=== PATIENT | male | born 1940 | race Caucasian/White ===

== ENCOUNTER → 2016-10-01 | Outpatient (CLI) | payer MEDICARE ==
[2016-10-01 09:48] LABS: Aty Lym Flag Slight; CH 32.8; CHCM 35.1; HCT 49.3 % (39.0-53.0); HGB 17.2 gm/dL (13.0-17.5); MCH 32.8 pg (25.0-35.0); MCHC 34.9 g/dL (31.0-37.0); MCV 93.9 fL (80.0-100.0); Mean Platelet Volume 7.2; RBC 5.25 m/uL (4.30-5.90); RDW 12.7 % (11.5-15.5); WBC 5.1 k/uL (3.8-10.6); WBC (Perox) 5.14
[2016-10-01 10:15] LABS: ALT 60 U/L (21-72); AST 58 U/L (17-59); Alkaline Phosphatase 74 U/L (38-126); Anion Gap 10 mmol/L; Blood Urea Nitrogen 9 mg/dL (9-20); Calcium 9.3 mg/dL (8.4-10.2); Carbon Dioxide 25 mmol/L (22-30); Chloride 103 mmol/L (98-107); Cholesterol 147 mg/dL (<200); Glucose 94 mg/dL (74-99); HDL Cholesterol 61 mg/dL (40-60); Non-African American GFR(MDRD) >60 (>60 ml/min/1.73 sqM); Potassium 4.7 mmol/L (3.5-5.1); Sodium 138 mmol/L (137-145); Total Bilirubin 1.2 mg/dL (0.2-1.3); Triglycerides 122 mg/dL (<150)
[2016-10-01 11:08] LABS: Add Differential Manual Differential
[2016-10-01 11:13] LABS: Manual Review Performed; Nucleated Red Blood Cells 0 /100 WBC (0-0); Total Cells Counted 100
== END ==
LOC: LABWHC1 09:25
PROVIDERS: ATTEND Internal Medicine Interventional Cardiology
DX: E78.2 Mixed hyperlipidemia (principal); I10 Essential (primary) hypertension
CPT/HCPCS: 36415; 80053; 80061; 85025

== ENCOUNTER → 2016-12-25 | Outpatient (CLI) | payer MEDICARE ==
[2016-12-25 09:22] LABS: ALT 57 U/L (21-72); AST 53 U/L (17-59); Cholesterol 156 mg/dL (<200); HDL Cholesterol 62 mg/dL (40-60); Triglycerides 129 mg/dL (<150)
== END | disposition home or self-care (01) ==
LOC: LABWHC1 08:50
PROVIDERS: ATTEND Internal Medicine Interventional Cardiology
DX: E78.2 Mixed hyperlipidemia (principal)
CPT/HCPCS: 36415; 80061; 84450; 84460

== ENCOUNTER → 2017-08-29 | Outpatient (CLI) | payer MEDICARE ==
[2017-08-29 10:33] LABS: ALT 51 U/L (21-72); AST 43 U/L (17-59); Albumin 3.7 g/dL (3.5-5.0); Alkaline Phosphatase 81 U/L (38-126); Anion Gap 10 mmol/L; Blood Urea Nitrogen 11 mg/dL (9-20); Calcium 9.1 mg/dL (8.4-10.2); Carbon Dioxide 28 mmol/L (22-30); Chloride 101 mmol/L (98-107); Cholesterol 125 mg/dL (<200); Glucose 92 mg/dL (74-99); HDL Cholesterol 44 mg/dL (40-60); LDL Cholesterol,Calculated 62 mg/dL (0-99); Potassium 4.8 mmol/L (3.5-5.1); Sodium 139 mmol/L (137-145); Total Bilirubin 0.8 mg/dL (0.2-1.3); Total Protein 6.5 g/dL (6.3-8.2); Triglycerides 97 mg/dL (<150)
== END | disposition home or self-care (01) ==
LOC: LABWHC1 09:29
PROVIDERS: ATTEND Internal Medicine Interventional Cardiology
DX: E78.2 Mixed hyperlipidemia (principal)
CPT/HCPCS: 36415; 80053; 80061

== ENCOUNTER → 2018-06-13 | Outpatient (CLI) | payer MEDICARE ==
[2018-06-13 12:13] LABS: Basophils % (A) 0 %; Eosinophils # (A) 0.1 k/uL (0-0.7); Eosinophils % (A) 2 %; HCT 50.2 % (39.0-53.0); HGB 17.1 gm/dL (13.0-17.5); Lymphocytes # (A) 1.4 k/uL (1.0-4.8); Lymphocytes % (A) 26 %; MCH 32.2 pg (25.0-35.0); MCV 94.8 fL (80.0-100.0); Mean Platelet Volume 6.8; Monocytes # (A) 0.5 k/uL (0-1.0); Monocytes % (A) 9 %; Neutrophils % (A) 58 %; Platelet Count 150 k/uL (150-450); RDW 12.8 % (11.5-15.5); WBC 5.1 k/uL (3.8-10.6)
[2018-06-13 16:32] LABS: Albumin 4.1 g/dL (3.80-4.90); Albumin/Globulin Ratio 2.41 (1.20-2.10); Anion Gap 6.5 mmol/L (4.00-12.00); Calcium 9.5 mg/dL (8.7-10.3); Carbon Dioxide 27.5 mmol/L (21.6-31.8); Globulin 1.7 g/dL (2.1-3.7); Potassium 5.2 mmol/L (3.5-5.5); Total Protein 5.8 g/dL (6.2-8.2)
== END | disposition home or self-care (01) ==
LOC: LABWHC1 10:44
PROVIDERS: ATTEND Family Medicine
DX: E78.2 Mixed hyperlipidemia (principal); I10 Essential (primary) hypertension
CPT/HCPCS: 36415; 80053; 80061; 85025

== ENCOUNTER → 2019-01-19 | Outpatient (CLI) | payer MEDICARE ==
[2019-01-19 19:38] LABS: LDL Cholesterol,Calculated 69.8 mg/dL (0.0-131.0); VLDL Calculation 27.2 mg/dL (5.00-40.00)
== END | disposition home or self-care (01) ==
LOC: LABWHC1 10:23
PROVIDERS: ATTEND Internal Medicine Interventional Cardiology
DX: E78.2 Mixed hyperlipidemia (principal)
CPT/HCPCS: 36415; 80061; 82550; 84450; 84460

== ENCOUNTER → 2019-03-26 | Outpatient (CLI) | payer MEDICARE ==
--- NOTE | 2019-03-26 09:51 | US ---
EXAMINATION TYPE: US abdomen complete DATE OF EXAM: 03/26/2019 COMPARISON: NONE CLINICAL HISTORY: R10.9 Abd pain. pain EXAM MEASUREMENTS: Liver Length: 12.8 cm Gallbladder Wall: 0.2 cm CBD: 0.3 cm Spleen: 9.8 cm Right Kidney: 10.4 x 4.5 x 5.2 cm Left Kidney: 11.9 x 4.9 x 4.5 cm Pancreas: Obscured by bowel gas Liver: There is increased echogenicity of the hepatic parenchyma with diminished visualization of th e portal triads most commonly relating to hepatic steatosis and limiting evaluation for underlying he patic masses. Gallbladder: Stones seen. Evidence for sonographic Singer's sign: No CBD: wnl Spleen: wnl Right Kidney: Hypoechoic area superior pole measuring 3.7 x 3.3 x 3.5 cm. Left Kidney: wnl Upper IVC: wnl Abd Aorta: Calcifications visualized. The liver is heterogenous and hyperechoic. The intrahepatic portion of the IVC and proximal abdomina l aorta are within normal limits. Common bile duct is unremarkable. The visualized portions of the p ancreas are homogenous. The spleen is unremarkable. Kidneys are symmetric and free of hydronephrosi s. IMPRESSION: 1. Hypoechoic mass of the superior pole of the right kidney measures 3.7 cm. This does not have defin itive characteristics of a cyst on ultrasound and should be further evaluated with enhanced three-pha se CT abdomen. 2. Cholelithiasis. No sonographic evidence of acute cholecystitis. 3. Sonographic findings most commonly related to hepatic steatosis. Correlate with liver function chanel ts.
== END | disposition home or self-care (01) ==
LOC: RADUSWWP 08:53
PROVIDERS: ATTEND Family Medicine
DX: K80.20 Calculus of gallbladder without cholecystitis without obstruction (principal); K76.0 Fatty (change of) liver, not elsewhere classified; N28.89 Other specified disorders of kidney and ureter
CPT/HCPCS: 76700

== ENCOUNTER → 2019-04-10 | Outpatient (CLI) | payer MEDICARE ==
[2019-04-10 14:03] LABS: African American GFR (CKD) >90 (>60 ml/min/1.73 sqM); Blood Urea Nitrogen 9 mg/dL (9-20); Non-African American GFR(CKD) 90 (>60 ml/min/1.73 sqM)
--- NOTE | 2019-04-10 15:11 | CT ---
EXAMINATION TYPE: CT abdomen wo/w con DATE OF EXAM: 04/10/2019 COMPARISON: Abdominal ultrasound March 26, 2019. HISTORY: Disorders of kidney, recent abnormal ultrasound CT DLP: 1547.9 mGycm, Automated Exposure Control for Dose Reduction was Utilized. CONTRAST: CT scan of the abdomen is performed with oral and without and with IV Contrast, patient injected with 100 mL of Isovue 300. FINDINGS: LUNG BASES: Partial visualization of sternal wires. Partial visualization of right coronary calcifica tion or more likely coronary stent. LIVER/GB: Versus diffusely low dense relative to spleen on noncontrast images consistent with diffuse fatty infiltration which correlates with recent ultrasound. PANCREAS: No significant abnormality is seen. SPLEEN: No significant abnormality is seen. ADRENALS: No significant abnormality is seen. KIDNEYS: No renal calculi on noncontrast CT in either kidney. Central vascular calcifications are pr esent bilaterally. Correlating with ultrasound there is exophytic lesion upper pole level measuring 3 .1 x 3.3 cm axial image 25 by nearly 3.0 cm craniocaudal dimension with rim calcification and central low density consistent with calcified exophytic cyst. No suspicious nodularity or enhancement. There is second smaller simple-appearing 1.2 cm cyst in the right kidney mid to lower pole level seen best delayed axial image 41 series 10. Some focal cortical thinning lower pole of the right kidney medial ly is seen. Symmetric cortical medullary uptake and excretion without hydronephrosis is noted bilater ally. BOWEL: Oral contrast does not reach colonic level. No suspicious small or large bowel dilatation. A f ew scattered diverticula in the left colon. LYMPH NODES: No greater than 1cm abdominal lymph nodes are appreciated. OSSEOUS STRUCTURES: Mild to moderate disc space narrowing L3-L4 level through L5-S1 levels with poste rior disc herniations effacing the anterior thecal sac and multilevel facet arthropathy. Postsurgical change at these levels is noted with multilevel spinous process resection. OTHER:. Moderate to severe calcified plaque of the aorta extends into branch vessels. IMPRESSION: Correlating with ultrasound there is 3.3 cm rim calcified exophytic cyst from the posteri or lateral aspect of right kidney, Bosniak type II lesion presumed benign.
== END | disposition home or self-care (01) ==
LOC: RADCTMAIN 13:19
PROVIDERS: ATTEND Family Medicine
DX: N28.1 Cyst of kidney, acquired (principal); N28.89 Other specified disorders of kidney and ureter
CPT/HCPCS: 82565; 84520; 74170; 36415; Q9967

== ENCOUNTER → 2019-07-13 | Outpatient (CLI) | payer MEDICARE ==
[2019-07-13 17:18] LABS: African American GFR (CKD) 99.9 (60.0-200.0); Albumin 3.9 g/dL (3.80-4.90); Albumin/Globulin Ratio 1.86 (1.60-3.17); Anion Gap 7.1 mmol/L (4.00-12.00); BUN/Creat Ratio 16.25 Ratio (12.00-20.00); Calcium 8.8 mg/dL (8.7-10.3); Carbon Dioxide 26.9 mmol/L (21.6-31.8); Chol/HDL Ratio 2.84; Globulin 2.1 g/dL (1.6-3.3); LDL Cholesterol,Calculated 63.6 mg/dL (0.0-131.0); Non-African American GFR(CKD) 86.2 (60.0-200.0); Potassium 4.7 mmol/L (3.5-5.5); Total Bilirubin 0.9 mg/dL (0.2-1.2); VLDL Calculation 26.4 mg/dL (5.00-40.00)
== END | disposition home or self-care (01) ==
LOC: LABWHC1 10:49
PROVIDERS: ATTEND Nurse Practitioner Adult Health
DX: E78.2 Mixed hyperlipidemia (principal); I10 Essential (primary) hypertension
CPT/HCPCS: 36415; 80053; 80061

== ENCOUNTER → 2020-01-19 | Outpatient (CLI) | payer MEDICARE ==
[2020-01-19 11:57] LABS: African American GFR (CKD) >90 (>60 ml/min/1.73 sqM); Blood Urea Nitrogen 9 mg/dL (9-20); Non-African American GFR(CKD) >90 (>60 ml/min/1.73 sqM)
--- NOTE | 2020-01-19 12:35 | CT ---
EXAMINATION TYPE: CT abdomen w con DATE OF EXAM: 01/19/2020 COMPARISON: 04/10/2019 HISTORY: Cyst of right kidney and flank pain. CT DLP: 961.2 mGycm CONTRAST: CT scan of the abdomen is performed with Oral Contrast and with IV Contrast, patient injected with 10 0ml mL of Isovue 300. FINDINGS: LUNG BASES-: No visible nodule. No infiltrate. LIVER/GB: No calcified gallstones. No space occupying hepatic lesion. Biliary tree is of normal ca liber. PANCREAS: No inflammation. No distinct mass. SPLEEN: No splenic enlargement. No lesion seen. ADRENALS: No nodule. No thickening. KIDNEYS/BLADDER: No hydronephrosis. Calcified cystic lesion upper pole right kidney is unchanged an d measures 3.2 cm in greatest dimension versus 3.2 cm previously. Simple cysts noted midpole right ki dney also unchanged. The left kidney is unremarkable. Nonobstructing nephrolithiasis seen bilaterally . Urinary bladder grossly unremarkable. BOWEL: Normal appendix. Normal bowel caliber. No inflammation. LYMPH NODES: No greater than 1cm abdominal or pelvic lymph nodes are appreciated. AORTA: No significant abnormality. OSSEOUS STRUCTURES: No significant abnormality is seen. OTHER: No significant additional abnormality is seen. IMPRESSION: 1. Stable calcified cystic lesion right kidney.
== END ==
LOC: RADCTMAIN 11:05
PROVIDERS: ATTEND Family Medicine
DX: N28.1 Cyst of kidney, acquired (principal)
CPT/HCPCS: 82565; 84520; 74160; 36415; Q9967

== ENCOUNTER → 2020-04-25 | Outpatient (CLI) | payer MEDICARE ==
[2020-04-25 18:41] LABS: African American GFR (CKD) 99.2 (60.0-200.0); Anion Gap 7.5 mmol/L (4.00-12.00); Carbon Dioxide 28.5 mmol/L (21.6-31.8); Non-African American GFR(CKD) 85.6 (60.0-200.0); Potassium 4.2 mmol/L (3.5-5.5)
== END | disposition home or self-care (01) ==
LOC: LABWHC1 14:39
PROVIDERS: ATTEND Internal Medicine Interventional Cardiology
DX: I10 Essential (primary) hypertension (principal)
CPT/HCPCS: 36415; 80051; 82565; 84520

== ENCOUNTER → 2020-05-11 | Outpatient (CLI) | payer MEDICARE ==
[2020-05-11 17:57] LABS: African American GFR (CKD) 99.2 (60.0-200.0); BUN/Creat Ratio 12.5 Ratio (12.00-20.00); Calcium 9.3 mg/dL (8.7-10.3); Non-African American GFR(CKD) 85.6 (60.0-200.0); Potassium 5.2 mmol/L (3.5-5.5)
== END | disposition home or self-care (01) ==
LOC: LABWHC1 07:47
PROVIDERS: ATTEND Nurse Practitioner Adult Health
DX: I10 Essential (primary) hypertension (principal)
CPT/HCPCS: 36415; 80048

== ENCOUNTER → 2023-06-11 | Outpatient (CLI) | payer MEDICARE ==
[2023-06-11 15:31] LABS: ALT 19 U/L (10-49); AST 24 U/L (14-35); Albumin 4.2 g/dL (3.8-4.9); Albumin/Globulin Ratio 1.91 Ratio (1.60-3.17); Alkaline Phosphatase 69 U/L (41-126); BUN/Creat Ratio 13.62 Ratio (12.00-20.00); Blood Urea Nitrogen 10.9 mg/dL (9.0-27.0); Calcium 9.5 mg/dL (8.7-10.3); Carbon Dioxide 27.6 mmol/L (21.6-31.8); Chloride 91 mmol/L (96-109); Chol/HDL Ratio 2.71 Ratio; Globulin 2.2 g/dL (1.6-3.3); Glucose 90 mg/dL (70-110); LDL Cholesterol,Calculated 56.3 mg/dL (0.0-131.0); Potassium 4.6 mmol/L (3.5-5.5); Sodium 129 mmol/L (135-145); Total Bilirubin 1.2 mg/dL (0.3-1.2); Total Protein 6.4 g/dL (6.2-8.2)
== END | disposition home or self-care (01) ==
LOC: LABWHC1 11:30
PROVIDERS: ATTEND Internal Medicine Interventional Cardiology
DX: Z00.00 Encounter for general adult medical examination without abnormal findings (principal); I10 Essential (primary) hypertension; E78.2 Mixed hyperlipidemia
CPT/HCPCS: 36415; 80053; 80061

== ENCOUNTER 2023-09-04 20:01 | Emergency (ER) | payer MEDICARE ==
[2023-09-04 20:37] VITALS: BP 176/87; PULSE 63; RESP 18; TEMP 98.2
--- NOTE | 2023-09-04 21:08 | CT ---
EXAMINATION TYPE: CT brain cspine wo con CT DLP: 1382.6 mGycm, Automated exposure control for dose reduction was used. DATE OF EXAM: 09/04/2023 8:47 PM COMPARISON: None. CLINICAL INDICATION:Male, 83 years old with history of fall from standing. on 81mg asa; Fall on thinn ers, laceration to left superior eyelid and behind left ear. TECHNIQUE: Brain: Multiple axial CT images of the brain were obtained without IV contrast. Cspine: Axial CT images from the skull base to the inferior aspect of T2 we obtained without intraven ous contrast. Coronal and sagittal reformatted images were also reviewed. FINDINGS: Brain: Extra-axial spaces: No abnormal extra-axial fluid collections. Ventricular system: Within normal limits Cerebral parenchyma: No acute intraparenchymal hemorrhage or mass effect. The thomas-white junction is well differentiated. Cerebellum: Unremarkable. Mass effect: No evidence of midline shift. Intracranial vasculature: Atherosclerotic calcifications of the intracranial vessels. Soft tissues: Left periorbital edema/laceration. Calvarium/osseous structures: No depressed skull fracture. Paranasal sinuses and mastoid air cells: Clear. Visualized orbits: Bilateral aphakia. Cervical spine: Fracture: None. Osseous structures: Multilevel degenerative disc disease changes with endplate spurring and disc oste ophyte complex's. Fixation hardware changes in the spine at multiple levels hardware is intact. Vertebral alignment: Within normal limits. Spinal canal/Neural Foramina: No evidence of significant spinal canal narrowing. No evidence for sign ificant neural foraminal stenosis. Neck soft tissues: Prevertebral soft tissues are within normal limits. Other: The airway is patent. The lung apices are clear. Atherosclerosis of the carotid bifurcations. IMPRESSION: 1. No acute intracranial process. 2. Left scalp laceration without evidence of fracture. 3. No evidence of cervical spine fracture. 4. Postsurgical changes spine with hardware intact, multilevel degenerative disc disease. 5. Severe atherosclerosis of the carotid bifurcations. There carotid duplex for evaluation for steno sis.
[2023-09-04] MEDS: LIDOCAINE 2%-EPI 1:100,000 20 ML VIAL SQ STA (21:25)
[2023-09-04] MEDS: BACITRACIN OINT 1 EACH PACKET TOPICAL ONE (23:04)
--- NOTE | 2023-09-04 23:22 | ED ---
Fall HPI - General Chief Complaint: Fall Stated Complaint: fell, head injury Time Seen by Provider: 09/04/23 20:21 Source: patient, family Mode of arrival: wheelchair - History of Present Illness Initial Comments: 83-year-old male presented to the ED with a chief complaint of fall per patient's daughter has a known issue with instability on his feet. Patient states today after going out to get a beer when he got out of his truck he "tripped up on his own feet" causing him to land onto his left side injuring his left elbow and also hitting the left side of his head on the cement. There is no LOC at this time. Patient is on aspirin. No other injuries at this time. No chest pain or shortness of breath. Denies weakness or numbness. No other complaints. - Related Data Previous Rx's Medication Instructions Recorded Aspirin 81 mg PO DAILY #30 chew 06/01/14 Benazepril [Lotensin] 10 mg PO DAILY #30 tab 06/01/14 Clopidogrel [Plavix] 75 mg PO DAILY #30 tab 06/01/14 Furosemide [Lasix] 40 mg PO DAILY #7 tab 06/01/14 Gabapentin [Neurontin] 300 mg PO TID PRN #90 cap 06/01/14 HYDROcodone/APAP 5-325MG [[place] 1 each PO Q4HR PRN #30 tab 06/01/14 5-325] Metoprolol Tartrate [Lopressor] 25 mg PO BID #60 tab 06/01/14 Potassium Chloride ER [K-Dur 20] 20 meq PO BID #14 tab.er.prt 06/01/14 Pravastatin Sodium [Pravachol] 40 mg PO HS #30 tab 06/01/14 Allergies Allergy/AdvReac Type Severity Reaction Status Date / Time codeine AdvReac Nausea Verified 09/04/23 20:15 Review of Systems ROS Statement: Those systems with pertinent positive or pertinent negative responses have been documented in the HPI. ROS Other: All systems not noted in ROS Statement are negative. Past Medical History Past Medical History: Hyperlipidemia, Hypertension, Myocardial Infarction ([place]), Osteoarthritis (OA) Additional Past Medical History / Comment(s): SILENT [place] 2000. HERNIATED DISC- SCHEDULED FOR EPIDERAL 06/01/14 @ O& A Last Myocardial Infarction Date:: UNKNOWN 2000 History of Any Multi-Drug Resistant Organisms: None Reported Past Surgical History: Back Surgery, Heart Catheterization With Stent, Orthopedic Surgery Additional Past Surgical History / Comment(s): HEART CATH WITH 1 STENT 2000. LAMINECTOMY 2004-CERVICAL FUSION 2001 & 2002. TR. EXT.CATARACT WITH LENS IMPLANT. REPAIR FX LT ELBOW-PINS,SCREWS & WIRES IN Past Anesthesia/Blood Transfusion Reactions: No Reported Reaction Date of Last Stent Placement:: 2000 Past Psychological History: No Psychological Hx Reported Past Alcohol Use History: Daily Past Drug Use History: None Reported General Exam Limitations: no limitations General appearance: alert, in no apparent distress Head exam: Present: other (No moseley signs or raccoon's eyes. Patient does have a small irregular laceration over his left eyebrow less than a centimeter.) Eye exam: Present: normal appearance Respiratory exam: Present: normal lung sounds bilaterally Cardiovascular Exam: Present: regular rate, normal rhythm GI/Abdominal exam: Present: soft Neurological exam: Present: alert, oriented X3, CN II-XII intact, normal gait Skin exam: Present: warm, dry Course Vital Signs 09/04/23 20:10 Temperature 98.2 F Pulse Rate 63 Respiratory 18 Rate Blood Pressure 176/87 O2 Sat by Pulse 98 Oximetry Procedures - Laceration Laceration #1 Indication: laceration Site: face Size (cm): 1 (0.5) Description: irregular Depth: simple, single layer Anesthetic Used: lidocaine 2%, with epi Anesthesia Technique: local infiltration Amount (mls): 2 Pre-repair: wound explored, irrigated extensively, deep structures intact Type of Sutures: nylon Size of Sutures: 6-0 Number of Sutures: 4 Technique: simple, interrupted Patient Tolerated Procedure: well, no complications Medical Decision Making - Medical Decision Making Was pt. sent in by a medical professional or institution (, PA, TRANSPORT DRIVER, urgent care, hospital, or [facility]...) When possible be specific @ -No Did you speak to anyone other than the patient for history (EMS, parent, family, police, friend...)? What history was obtained from this source @ -No Did you review nursing and triage notes (agree or disagree)? Why? @ -I reviewed and agree with nursing and triage notes Were old charts reviewed (outside hosp., previous admission, EMS record, old EKG, old radiological studies, urgent care reports/EKG's, ch[facility] records)? Report findings @ -No old charts were reviewed Differential Diagnosis (chest pain, altered mental status, abdominal pain women, abdominal pain men, vaginal bleeding, weakness, fever, dyspnea, syncope, headache, dizziness, GI bleed, back pain, seizure, CVA, palpatations, mental health, musculoskeletal)? @ -Acute traumatic bleed, acute fracture. This is not meant to be an all- inclusive list. EKG interpreted by me (3pts min.). @ -None X-rays interpreted by me (1pt min.). @ -None done CT interpreted by me (1pt min.). @ -CT brain interpreted by me that shows no evidence of acute bleed or other acute finding. U/S interpreted by me (1pt. min.). @ -None done What testing was considered but not performed or refused? (CT, X-rays, U/S, labs)? Why? @ -None What meds were considered but not given or refused? Why? @ -None Did you discuss the management of the patient with other professionals (professionals i.e. , PA, TRANSPORT DRIVER, lab, RT, psych nurse, forensic social worker, psychiatric aides teacher, teacher, officer captain, case reviewer)? Give summary @ -No Was smoking cessation discussed for >3mins.? @ -No Was critical care preformed (if so, how long)? @ -No Were there social determinants of health that impacted care today? How? (Homelessness, low income, unemployed, alcoholism, drug addiction, transportation, low edu. Level, literacy, decrease access to med. care, chcf, rehab)? @ -No Was there de-escalation of care discussed even if they declined (Discuss DNR or withdrawal of care, Hospice)? DNR status @ -No What co-morbidities impacted this encounter? (DM, HTN, Smoking, COPD, CAD, Cancer, CVA, ARF, Chemo, Hep., AIDS, mental health diagnosis, sleep apnea, morbid obesity)? @ -None Was patient admitted / discharged? Hospital course, mention meds given and route, prescriptions, significant lab abnormalities, going to OR and other pertinent info. @ -Discharge 83-year-old male on aspirin presenting to the ED status post mechanical fall with injury to his head causing laceration. Also has skin tear to his left elbow which has no margins for repair. Tetanus updated. Laceration repaired. For further details please see procedure note. Discharged home in stable condition. Advised wound care. Left elbow was also irrigated and covered with bacitracin ointment. Discussed return precautions with patient and daughter who verbalized agreement. Undiagnosed new problem with uncertain prognosis? @ -No Drug Therapy requiring intensive monitoring for toxicity (Heparin, Nitro, Insulin, Cardizem)? @ -No Were any procedures done? @ -No Diagnosis/symptom? @ -Status post mechanical fall, laceration to eyebrow, skin tear to left elbow. Acute, or Chronic, or Acute on Chronic? @ -Acute Uncomplicated (without systemic symptoms) or Complicated (systemic symptoms)? @ -Uncomplicated Side effects of treatment? @ -No Exacerbation, Progression, or Severe Exacerbation? @ -No Poses a threat to life or bodily function? How? (Chest pain, [place], [place], pneumonia, PE, COPD, DKA, ARF, appy, cholecystitis, CVA, Diverticulitis, Homicidal, Suicidal, threat to staff... and all critical care pts) @ -No Disposition Clinical Impression: Fall Disposition: HOME SELF-CARE Condition: Good Instructions (If sedation given, give patient instructions): Fall Prevention for Older Adults (ED), Care For Your Stitches (ED) Additional Instructions: Please return to the Emergency Department if symptoms worsen or any other concerns. Please follow-up with your primary care provider. Is patient prescribed a controlled substance at d/c from ED?: No Referrals: Michael Ray MD [Primary Care Provider] - 1-2 days Time of Disposition: 23:29
[2023-09-04] MEDS: DIPH,PERTUS(ACELL)TETVAC-LF 0.5 ML VIAL IM ONE (23:37)
== END 2023-09-04 23:45 | disposition home or self-care (01) ==
LOC: EC 20:01
DX: S01.112A Laceration without foreign body of left eyelid and periocular area, initial encounter (principal); E78.5 Hyperlipidemia, unspecified; I10 Essential (primary) hypertension; I25.2 Old myocardial infarction; Z79.899 Other long term (current) drug therapy; Z23 Encounter for immunization; Z79.02 Long term (current) use of antithrombotics/antiplatelets; Z88.5 Allergy status to narcotic agent; W01.0XXA Fall on same level from slipping, tripping and stumbling without subsequent striking against object, initial encounter
CPT/HCPCS: 12011; 70450; 72125; 90471; 90715; 99284

== ENCOUNTER 2024-09-27 20:34 | Emergency (ER) | payer MEDICARE ==
[2024-09-27 20:57] VITALS: RESP 18
--- NOTE | 2024-09-27 21:19 | ED ---
Fall HPI - General Chief Complaint: Fall Stated Complaint: Fall, Possible LOC Time Seen by Provider: 09/27/24 20:43 Source: EMS, RN notes reviewed, old records reviewed Mode of arrival: EMS Limitations: no limitations - History of Present Illness Initial Comments: This is an 84-year-old male after a fall fall from standing fall with a head injury. 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 Fall Witnessed: yes, by family Place Fall Occurred: home Loss of Consciousness: none Prolonged Down Time?: no Symptoms Prior to Fall: none Location: head Severity: severe Severity scale (1-10): 9 Context: tripped/slipped Associated Symptoms: headache - Related Data Previous Rx's Medication Instructions Recorded Aspirin 81 mg PO DAILY #30 chew 06/01/14 Benazepril [Lotensin] 10 mg PO DAILY #30 tab 06/01/14 Clopidogrel [Plavix] 75 mg PO DAILY #30 tab 06/01/14 Furosemide [Lasix] 40 mg PO DAILY #7 tab 06/01/14 Gabapentin [Neurontin] 300 mg PO TID PRN #90 cap 06/01/14 HYDROcodone/APAP 5-325MG [[place] 1 each PO Q4HR PRN #30 tab 06/01/14 5-325] Metoprolol Tartrate [Lopressor] 25 mg PO BID #60 tab 06/01/14 Potassium Chloride ER [K-Dur 20] 20 meq PO BID #14 tab.er.prt 06/01/14 Pravastatin Sodium [Pravachol] 40 mg PO HS #30 tab 06/01/14 Allergies Allergy/AdvReac Type Severity Reaction Status Date / Time codeine AdvReac Nausea Verified 09/04/23 20:15 Review of Systems ROS Statement: Those systems with pertinent positive or pertinent negative responses have been documented in the HPI. ROS Other: All systems not noted in ROS Statement are negative. Past Medical History Past Medical History: Hyperlipidemia, Hypertension, Myocardial Infarction ([place]), Osteoarthritis (OA) Additional Past Medical History / Comment(s): SILENT [place] 2000. HERNIATED DISC- SCHEDULED FOR EPIDERAL 06/01/14 @ O& A Last Myocardial Infarction Date:: UNKNOWN 2000 History of Any Multi-Drug Resistant Organisms: None Reported Past Surgical History: Back Surgery, Coronary Bypass/CABG, Heart Catheterization With Stent, Orthopedic Surgery Additional Past Surgical History / Comment(s): HEART CATH WITH 1 STENT 2000. LAMINECTOMY 2004-CERVICAL FUSION 2001 & 2002. TR. EXT.CATARACT WITH LENS IMPLANT. REPAIR FX LT ELBOW-PINS,SCREWS & WIRES IN. CABG x3 (2013) Past Anesthesia/Blood Transfusion Reactions: No Reported Reaction Date of Last Stent Placement:: 2000 Past Psychological History: No Psychological Hx Reported Smoking Status: Former smoker Past Alcohol Use History: Daily Past Drug Use History: None Reported General Exam General appearance: alert, in no apparent distress Head exam: Present: atraumatic, normocephalic, normal inspection Eye exam: Present: normal appearance, PERRL, EOMI. Absent: scleral icterus, conjunctival injection, periorbital swelling ENT exam: Present: normal exam, mucous membranes moist Neck exam: Present: normal inspection. Absent: tenderness, meningismus, lymphadenopathy Respiratory exam: Present: normal lung sounds bilaterally. Absent: respiratory distress, wheezes, rales, rhonchi, stridor Cardiovascular Exam: Present: regular rate, normal rhythm, normal heart sounds. Absent: systolic murmur, diastolic murmur, rubs, gallop, clicks GI/Abdominal exam: Present: soft, normal bowel sounds. Absent: distended, tenderness, guarding, rebound, rigid Extremities exam: Present: normal inspection, full ROM, normal capillary refill. Absent: tenderness, pedal edema, joint swelling, calf tenderness Back exam: Present: normal inspection Neurological exam: Present: alert, oriented X3, CN II-XII intact Psychiatric exam: Present: normal affect, normal mood Skin exam: Present: warm, dry, intact, normal color. Absent: rash Course Vital Signs 09/27/24 09/27/24 20:52 22:30 Pulse Rate 62 58 L Respiratory 18 18 Rate Blood Pressure 160/97 187/77 O2 Sat by Pulse 98 97 Oximetry - Reevaluation(s) Reevaluation #1: Medical records reviewed Reevaluation #2: Symptoms improved Reevaluation #3: Patient informed of results and questions have been answered Reevaluation #4: Was pt. sent in by a medical professional or institution (, PA, AND DRYING SUPERVISOR COOKING [employer]ING, urgent care, hospital, or halfway...) When possible be specific @ -no Did you speak to anyone other than the patient for history (EMS, parent, family, police, friend...)? What history was obtained from this source @ -no Did you review nursing and triage notes (agree or disagree)? Why? @ -agree Are old charts reviewed (outside hosp., previous admission, EMS record, old EKG, old radiological studies, urgent care reports/EKG's, halfway records)? Report findings @ -yes Differential Diagnosis (chest pain, altered mental status, abdominal pain women, abdominal pain men, vaginal bleeding, weakness, fever, dyspnea, syncope, headache, dizziness, GI bleed, back pain, seizure, CVA, palpatations, mental health, musculoskeletal)? @ -prior EKG interpreted by me (3pts min.). @ -no X-rays interpreted by me (1pt min.). @ -no CT interpreted by me (1pt min.). @ -yes negative for acute disease U/S interpreted by me (1pt. min.). @ -no What testing was considered but not performed or refused? (CT, X-rays, U/S, labs)? Why? @ -none What meds were considered but not given or refused? Why? @ -none Did you discuss the management of the patient with other professionals (professionals i.e. , PA, AND DRYING SUPERVISOR COOK[employer]ING, lab, RT, psych nurse, social organization professor, classification analyst, teacher, search and rescue officer, case management director)? Give summary @ -no Was smoking cessation discussed for >3mins.? @ -no Was critical care preformed (if so, how long)? @ -no Were there social determinants of health that impacted care today? How? (Homelessness, low income, unemployed, alcoholism, drug addiction, transportation, low edu. Level, literacy, decrease access to med. care, longterm, rehab)? @ -none Was there de-escalation of care discussed even if they declined (Discuss DNR or withdrawal of care, Hospice)? DNR status @ -no What co-morbidities impacted this encounter? (DM, HTN, Smoking, COPD, CAD, Cancer, CVA, ARF, Chemo, Hep., AIDS, mental health diagnosis, sleep apnea, morbid obesity)? @ -none Was patient admitted / discharged? Hospital course, mention meds given and route, prescriptions, significant lab abnormalities, going to OR and other p ertinent info. @ - 84 male after a fall from standing with head injury normal CT scan here in the ER patient feels well and can be discharged home Discharge Undiagnosed new problem with uncertain prognosis? @ -no Drug Therapy requiring intensive monitoring for toxicity (Heparin, Nitro, Insulin, Cardizem)? @ -no Were any procedures done? @ -no Diagnosis/symptom? @ -fall with head injury Acute, or Chronic, or Acute on Chronic? @ -Acute Uncomplicated (without systemic symptoms) or Complicated (systemic symptoms)? @ -Complicated Side effects of treatment? @ -no Exacerbation, Progression, or Severe Exacerbation? @ -exacerbation Poses a threat to life or bodily function? How? (Chest pain, [place], [place], pneumonia, PE, COPD, DKA, ARF, appy, cholecystitis, CVA, Diverticulitis, Homicidal, Suici david, threat to staff... and all critical care pts) @ -yes extremes of age Medical Decision Making - Medical Decision Making 84 male after a fall from standing with head injury normal CT scan here in the ER patient feels well and can be discharged home - Radiology Data Radiology results: report reviewed (CT brain C-spine is negative for acute disease), image reviewed Disposition Clinical Impression: Fall, Head injury Disposition: HOME SELF-CARE Condition: Good Instructions (If sedation given, give patient instructions): Fall Prevention for Older Adults (ED), Head Injury (ED) Is patient prescribed a controlled substance at d/c from ED?: No Referrals: Michael Ray MD [Primary Care Provider] - 1-2 days Time of Disposition: 22:05
--- NOTE | 2024-09-27 21:52 | CT ---
EXAMINATION TYPE: CT brain cspine wo con DATE OF EXAM: 09/27/2024 9:36 PM COMPARISON: Previous CT study 09/04/2023. CLINICAL INDICATION: Male, 84 years old with history of fall; Fall, no thinners, poss LOC TECHNIQUE: Brain: Multiple axial CT images of the brain were obtained without IV contrast. Cspine: Axial CT images from the skull base to the inferior aspect of T2 we obtained without intraven ous contrast. Coronal and sagittal reformatted images were also reviewed. . CT DLP: 1412.2 mGycm, Automated exposure control for dose reduction was used. FINDINGS: Brain: Extra-axial spaces: No abnormal extra-axial fluid collections. Ventricular system: Within normal limits Cerebral parenchyma: No acute intraparenchymal hemorrhage or mass effect. The thomas-white junction is well differentiated. Scattered hypoattenuating areas are seen within the white matter. 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 Cerebellum: Unremarkable. Mass effect: No evidence of midline shift. Intracranial vasculature: unremarkable Soft tissues: Right posterior parietal/occipital scalp image 10. Calvarium/osseous structures: No depressed skull fracture. Paranasal sinuses and mastoid air cells: Clear. Visualized orbits: The lenses are surgically removed from the globes. Cervical spine: Fracture: None. Osseous structures: Unremarkable Vertebral alignment: Grade 1 anterolisthesis of C7 on T1.. Spinal canal/Neural Foramina: Multilevel anterior cervical spinal fusion hardware with intervertebral disc spacer device is noted. No periprosthetic lucency or evidence of acute fracture or subluxation. Facet arthropathy and posterior disc osteophyte complexes causing degrees of multilevel neural jennifer inal and spinal canal stenosis. Neck soft tissues: Prevertebral soft tissues are within normal limits. Other: The airway is patent. The lung apices are clear. Extensive calcified atherosclerotic disease t hroughout the bilateral common carotid and internal carotid arteries. IMPRESSION: 1. Right posterior scalp hematoma without evidence of an acute intracranial abnormality. 2. No acute fracture or traumatic subluxation of the cervical spine. [facility], , 09/27/2024 9:49 PM
[2024-09-27 22:36] VITALS: BP 187/77; PULSE 58
== END 2024-09-27 22:58 | disposition home or self-care (01) ==
LOC: EC 20:34
DX: S09.90XA Unspecified injury of head, initial encounter (principal); Z87.891 Personal history of nicotine dependence; W18.30XA Fall on same level, unspecified, initial encounter
CPT/HCPCS: 70450; 72125; 99284